=== PATIENT | male | born 1995 | race Caucasian/White ===

== ENCOUNTER 2020-05-12 12:45 | Emergency (ER) | payer OTHER ==
[~2020-05-12] VITALS: Ht 182.9 cm; Wt 106.6 kg
[2020-05-12] MEDS ORDERED: ADDERALL 15 MG15 MG PO (12:58)
[2020-05-12] MEDS ORDERED: BUSPIRONE HCL15 MG PO (12:59)
[2020-05-12] MEDS ORDERED: LEXAPRO20 MG PO (12:59)
[2020-05-12] MEDS ORDERED: CLONIDINE HCL0.1 MG PO (12:59)
== END 2020-05-12 16:15 | disposition home or self-care (01) ==
LOC: ED 12:45
DX: R51 Headache (principal); Z79.899 Other long term (current) drug therapy
CPT/HCPCS: 70450; 99284-25